=== PATIENT | male | born 1945 | race Caucasian/White ===

== ENCOUNTER 2020-07-19 09:27 | Emergency (ER) | payer MEDICARE ==
[~2020-07-19] VITALS: Ht 182.9 cm; Wt 90.0 kg
--- NOTE | 2020-07-19 09:49 | NUR ---
PT BIBA FOR NAUSEA, SWEATS, "HEAD SPINNING", LOSS OF BALANCE, DRY MOUTH, AND DRY HEAVES.
--- NOTE | 2020-07-19 09:51 | NUR ---
PT ASKED [place] SUICIDE SCREENING QUESTIONS. PT STARTS CRYING AND YELLING "THEY ARE COMING FOR ME, THEY ALL ARE COMING". PT STATES HE HAS HAD THOUGHTS ABOUT KILLING HIMSELF IN THE LAST THREE MONTHS. PT STATES "THE FLASHBACKS ARE REALLY BAD, I SHOULDN'T HAVE MADE IT BACK".
--- NOTE | 2020-07-19 09:54 | NUR ---
PT RESTING GURNEY, PT STILL TEARFUL BUT NOT YELLING.
[2020-07-19] MEDS ORDERED: PROCHLORPERAZINE 5 MG/ML, 2ML IVPush ONE (10:00)
[2020-07-19] MEDS ORDERED: SODIUM CHLORIDE 0.9% 1,000ML IVBOLUS ONE (10:00)
[2020-07-19] MEDS ORDERED: SODIUM CHLORIDE FLUSH 10ML SYR IVF ONE (10:00)
[2020-07-19] MEDS ORDERED: PROCHLORPERAZINE 5 MG/ML, 2ML ONE (10:05)
--- NOTE | 2020-07-19 10:15 | NUR ---
PT MOVED TO ROOM 39. SITTER OUTSIDE ROOM. PT BELONGINGS REMOVED FROM PATIENT AND GIVEN TO .
--- NOTE | 2020-07-19 10:20 | NUR ---
PT'S BELONGINGS MOVED TO SECURITY LOCKER WITH LABEL
[2020-07-19 11:08] LABS: BASOPHILS % (AUTO) 0 % (0-1); EOSINOPHILS % (AUTO) 0 % (1-7); LYMPHOCYTES % (AUTO) 17 % (22-44); MEAN CORPUSCULAR HGB CONC 33.5 g/dL (33.2-36.2); MONOCYTES % (AUTO) 5 % (2-9); NEUTROPHILS % (AUTO) 78 % (42-75); PLATELET COUNT 190 x10^3/uL (130-400); RED BLOOD COUNT 4.72 x10^6/uL (4.38-5.82); RED CELL DISTRIBUTION WIDTH 13.3 % (9.4-14.8)
[2020-07-19 11:11] LABS: MD NO
[2020-07-19 11:18] LABS: ANION GAP 4 mmol/L (5-15); CALCIUM 8.2 mg/dL (8.5-10.1); CHLORIDE 115 mmol/L (98-107); CREATININE 0.82 mg/dL (0.7-1.3)
--- NOTE | 2020-07-19 11:20 | NUR ---
ATTEMPTED TO AMBULATE PT. PT STILL DIZZY AND UNABLE TO AMBULATE SAFELY.
[2020-07-19 13:38] VITALS: BP 118/61
--- NOTE | 2020-07-19 13:44 | NUR ---
PT AMBULATED 50 FEET DOWN THE CACERES STEADILY, PT REPORTED FEELING MUCH BETTER WHILE WALKING. PT BACK IN BED LYING DOWN AND REPORTS THAT HE IS DIZZY AND THE ROOM IS SPINNING AGAIN.
--- NOTE | 2020-07-19 15:04 | NUR ---
PT REPORTS HE IS NOT SUICIDAL AND HE FREQUENTLY HAS EPISODES WERE FOR A SHORT TIME HE FEELS SUICIDAL, DENIES SI AT THIS TIME [facility]
== END 2020-07-19 15:04 | disposition home or self-care (01) ==
LOC: ED 10:30
DX: R42 Dizziness and giddiness (principal); R11.2 Nausea with vomiting, unspecified; R11.0 Nausea
CPT/HCPCS: 36415; 70450; 70551; 80048; 83735; 85025; 96361; 96374; 99285; J0780; J7030